=== PATIENT | male | born 1990 | race Caucasian/White ===

== ENCOUNTER 2018-06-20 23:32 | Emergency (ER) | payer MEDICAID, SELFPAY ==
[2018-06-20 23:33] VITALS: BP 113/72; PULSE 88; RESP 16; TEMP 37.1; O2SAT 99; BMI 22.2
--- NOTE | 2018-06-20 23:46 | ED.VISSUMM ---
- ER Visit Summary Date of Service: 06/20/18 Chief Complaint: Abscess History of Present Illness: The patient is a 28 M who presents with a facial abscess. He noticed a red raised area on the left side of his nose and another spot above his upper lip on the left about 2 days ago. He denies any systemic symptoms such as fevers nausea vomiting. Physical Examination: Afebrile vitals are normal Patient has a small abscess on the left side of his nose he also has an area of eschar consistent with a healing open wound above his left upper lip with some mild surrounding erythema no fluctuance no drainage Test Results: Not indicated Emergency Department Course and Treatment: Patient will be treated with doxycycline. He was advised on signs and symptoms to monitor for. He understands to return for new or worsening symptoms. All questions answered bedside, patient agreeable to this plan. Patient discharged. Treatment Plan: [] Disposition: Discharge Impression: Facial abscess This note was generated with [employer] dictation software. It may contain incorrect words, spelling, and punctuation that were not noted in review of the chart prior to signing ED Disposition - Plan for ED Patient: Chief Complaint: Abscess Referrals: Care Physician,No Primary [Primary Care Provider] -
--- NOTE | 2018-06-20 23:49 | ED.DCSUM_ITS ---
- ER Visit Summary Date of Service: 06/20/18 Chief Complaint: Abscess History of Present Illness: The patient is a 28 M who presents with a facial abscess. He noticed a red raised area on the left side of his nose and another spot above his upper lip on the left about 2 days ago. He denies any systemic symptoms such as fevers nausea vomiting. Physical Examination: Afebrile vitals are normal Patient has a small abscess on the left side of his nose he also has an area of eschar consistent with a healing open wound above his left upper lip with some mild surrounding erythema no fluctuance no drainage Test Results: Not indicated Emergency Department Course and Treatment: Patient will be treated with doxycycline. He was advised on signs and symptoms to monitor for. He understands to return for new or worsening symptoms. All questions answered bedside, patient agreeable to this plan. Patient discharged. Treatment Plan: [] Disposition: Discharge Impression: Facial abscess This note was generated with [employer] dictation software. It may contain incorrect words, spelling, and punctuation that were not noted in review of the chart prior to signing ED Disposition - Plan for ED Patient: Chief Complaint: Abscess Referrals: Care Physician,No Primary [Primary Care Provider] -
--- NOTE | 2018-06-20 23:49 | ED.DEP ---
ED Disposition - Plan for ED Patient: Chief Complaint: Abscess Instructions: ED Staph Infec Abx Tx Only Prescriptions: Doxycycline 100 mg PO BID #20 cap Referrals: Care Physician,No Primary [Primary Care Provider] -
[2018-06-21] MEDS: Doxycycline 100 MG CAPSULE PO (00:09)
[2018-06-21 00:10] VITALS: BP 110/71; PULSE 72; RESP 16; O2SAT 98
--- OUTSIDE RECORDS SUMMARY | 2018-08-25 08:54 | XMS RPT_ITS ---
:1990 Author Organization [facility] Care Team Providers Name Role Phone Primay Care Physicia, No Primary Care Unavailable Black Roberts Attending Unavailable PROBLEMS PROBLEMS No Problem Records FoundPROCEDURES PROCEDURES No Procedure Records FoundRESULTS RESULTS DISCHARGE INSTRUCTION Observed: 06/20/2018 Status: F Source: [place] 11:50 PM [facility] REPOSITORY [facility] Medical Records Department [address] [place] [address] Discharge Instruction 06/20/18 2349 MR#: [id number] Acct: [id number] Name: ANDERSON RAMÍREZ Rep #: [id number] : 1990 28 From: Black Roberts MD PCP: Care Physician, No Primary Status: PRE ER ED Disposition - Plan for ED Patient: Chief Complaint: Abscess Instructions: ED Staph Infec Abx Tx Only Prescriptions: Doxycycline 100 mg PO BID #20 cap Referrals: Care Physician,No Primary [Primary Care Provider] - What to do if you have Problems For any increased pain, shortness of breath, bleeding, nausea or vomiting, chest pain, or any unexpected problems, contact your Primary Care Provider. Call [facility] ([phone]) or report to the closest Emergency Room. Call 911 if necessary. 06/20/18 5610 <Electronically signed by Black Roberts MD> Date Black Roberts MD Cosigner Signature (If Indicated): Date CC: No Primary Care Physician EMERGENCY DEPARTMENT Observed: 06/20/2018 Status: F Source: [place] SUMMARY 11:49 PM [facility] REPOSITORY [facility] Medical Records Department [address] [place] [address] Emergency Department Summary 06/20/18 2346 MR#: [id number] Acct: [id number] Name: ANDERSON RAMÍREZ Rep #: [id number] : 1990 28 From: Black Roberts MD PCP: Care Physician, No Primary Status: PRE ER - ER Visit Summary Date of Service: 06/20/18 Chief Complaint: Abscess History of Present Illness: The patient is a 28 M who presents with a facial abscess. He noticed a red raised area on the left side of his nose and another spot above his upper lip on the left about 2 days ago. He denies any systemic symptoms such as fevers nausea vomiting. Physical Examination: Afebrile vitals are normal Patient has a small abscess on the left side of his nose he also has an area of eschar consistent with a healing open wound above his left upper lip with some mild surrounding erythema no fluctuance no drainage Test Results: Not indicated Emergency Department Course and Treatment: Patient will be treated with doxycycline. He was advised on signs and symptoms to monitor for. He understands to return for new or worsening symptoms. All questions answered bedside, patient agreeable to this plan. Patient discharged. Treatment Plan: [] Disposition: Discharge Impression: Facial abscess This note was generated with [employer] dictation software. It may contain incorrect words, spelling, and punctuation that were not noted in review of the chart prior to signing ED Disposition - Plan for ED Patient: Chief Complaint: Abscess Referrals: Care Physician,No Primary [Primary Care Provider] - What to do if you have Problems For any increased pain, shortness of breath, bleeding, nausea or vomiting, chest pain, or any unexpected problems, contact your Primary Care Provider. Call [facility] ([phone]) or report to the closest Emergency Room. Call 911 if necessary. 06/20/18 2349 <Electronically signed by Black Roberts MD> Date Black Franco Signature (If Indicated): Date CC: No Primary Care Physician ALLERGIES ALLERGIES DATE TYPE / CODE NAME / CODE REACTION SEVERITY SOURCE 06/20/2018 Drug No Known Unknown [facility] Allergy/4160 Allergies/F00 [facility] [address]15(SNOMED [id number](RXNOR Repository CT) M) ENCOUNTERS ENCOUNTERS ADMIT/DISCHARGE ACCOUNT ADMITTING ENCOUNTER LOCATION SOURCE NUMBER CLASS 06/20/2018/ [id number] [place] [address] [place] [address] ing:ED Repository PAYERS PAYERS ENCOUNTER GUARANTOR PAYER SUBSCRIBER SOURCE 06/20/2018 Anderson L Primary Anderson L [id number] Insurance:CARESOJEREMIE McdanielsB: [facility] Number: [id number] [facility] [id number] Repository [place], [place] Date:2018-06-20P O [id number]: [phone]: CLAIMS [phone] () [place] [address]DV: 06/20/2018 Secondary NOT GIVENUNK [place] Insurance:SELF PAY [facility] Number: Effective Repository Date:2018-06-20
== END 2018-06-21 00:12 | disposition home or self-care (01) ==
LOC: ED 23:52
PROVIDERS: Emergency Provider Emergency Medicine
DX: L02.01 Cutaneous abscess of face (principal)
CPT/HCPCS: 99283